=== PATIENT | male | born 1955 | race Caucasian/White ===

== ENCOUNTER 2019-11-03 12:02 | Emergency (ER) | payer OTHER ==
[~2019-11-03] VITALS: Ht 167.6 cm; Wt 79.4 kg
--- NOTE | 2019-11-03 12:25 | NUR ---
HEAD INJURY, SCALP ABRASION FROM A FALLING WALL. DENIES KO UTD W/ TETANUS SHOT. KEPT COMFORTBALE, WILL CONTINUE TO MONITOR ACCORDINGLY.
[2019-11-03 12:27] VITALS: BP 145/81
--- NOTE | 2019-11-03 12:31 | NUR ---
Patient discharged to home in stable condition. Written and verbal after care instructions given. Patient verbalizes understanding of instruction.
== END 2019-11-03 12:31 | disposition home or self-care (01) ==
LOC: ER 12:02
DX: S00.03XA Contusion of scalp, initial encounter (principal); I10 Essential (primary) hypertension; W20.8XXA Other cause of strike by thrown, projected or falling object, initial encounter; Y93.89 Activity, other specified; Y92.89 Other specified places as the place of occurrence of the external cause; Y99.0 Civilian activity done for income or pay